=== PATIENT | female | born 2005 | race Caucasian/White ===

== ENCOUNTER 2023-02-07 16:18 | Emergency (ER) | payer OTHER, SELFPAY ==
[2023-02-07 16:25] VITALS: BP 125/80; PULSE 94; RESP 16; TEMP 36.7; O2SAT 100
--- NOTE | 2023-02-07 16:40 | ED.URI ---
HPI - URI/Sore Throat General Chief Complaint: Upper Respiratory Infection Stated Complaint: shortness of breath,chest pain,congestion Time Seen by Provider: 02/07/23 16:40 Source: patient, family, RN notes reviewed and old records reviewed Mode of arrival: ambulatory Limitations: no limitations History of Present Illness HPI Narrative: 17 year old female who presents to [facility] with complaints of cough, head congestion,sore throat,hoarseness, lower chest discomfort associated with coughing for the past 2 days. Patient reports that she has been taking Zyrtec D for her symptoms, reports no fevers. Patient reports that cough is productive of thick hammer mucous and is frequent. Patient denies any shortness of breath respirations even and nonlabored, no tachypnea noted SAO2 100% on room air. Reports that significant other had been ill with similar symptoms. MD elicited complaint: cough, sore throat, rhinorrhea and nasal congestion Onset (ago): day(s) (2) Pain scale (0-10): 5 Treatments prior to arrival: other (Zyrtec D) Related Data Home Medications Medication Instructions Recorded Confirmed sertraline 50 mg tablet 50 mg PO DAILY 02/07/23 02/07/23 Allergies Allergy/AdvReac Type Severity Reaction Status Date / Time No Known Allergies Allergy Unverified 04/05/17 18:10 Review of Systems Review of Systems: CONSTITUTIONAL: Denies malaise, chills, sweats, or fever. EYES: Denies visual changes, redness, or discharge. ENT: Reports rhinorrhea, congestion, sinus pain,no otalgia, positive sore throat. CARDIOVASCULAR: Denies chest pain, palpitations, or edema.lower anterior chest soreness from coughing RESPIRATORY: Reports loose cough.? Denies dyspnea. GASTROINTESTINAL: Denies abdominal pain, nausea, vomiting, diarrhea SKIN: Denies rash or itching. MUSCULOSKELETAL: Denies myalgia. NEUROLOGIC: Denies headache. All systems reviewed & are unremarkable except as noted in HPI and below PMFSH Past Medical History Medical History (Updated 02/08/23 @ 11:08 by Hetal Velásquez NP) Anxiety and depression Seizures Social History Social History (Updated 02/08/23 @ 11:03 by Hetal Velásquez NP) Smoking status: Current every day smoker Tobacco type: e-cigarettes/vaping Alcohol intake: never Substance use type: does not use Living arrangements: with family Gender identity (if verbalized by the patient): Female Comments At time of signature, agree with nursing past medical, surgical, social and family history. There is no relevant family history pertinent to the presenting complaint Exam Narrative: GENERAL: Well-appearing, well-nourished, and in no acute distress. HEAD: Normocephalic EYES: PERRLA, conjunctivae clear ENT: Nares clear, turbinates edematous and erythematous, clear discharge. Mucous membranes moist. TM pearly jean with dull light reflex bilaterally; no tragal tenderness. Oropharynx erythematous without lesions. Tonsils red enlarged and without exudate, no drooling, hoarseness, no trismus, uvula midline.post nasal drainage NECK: Supple. No lymphadenopathy CHEST: Clear to auscultation, breath sounds equal. No wheezing, rhonchi, rales, or stridor. No respiratory distress, speaks in full sentences.productive cough frequent, SAO2 100% on room air, lower anterior chest soreness from coughing HEART: Regular rate and rhythm. No murmur heard. SKIN: Warm, dry, no rash. NEURO: Alert and oriented x3. PSYCH: Normal mood and affect Course Course Emergency Course: Patient is aware of diagnosis, understands and agrees to treatment plan.? Anticipatory guidance given.? Patient agrees to follow-up as directed and is aware of reasons to seek care at the emergency department. Portions of this record may have been created with voice recognition software Level of Care: Express Care Visit Vital Signs Vital signs: Vital Signs Temperature 36.7 C 02/07/23 16:25 Pulse Rate 94
== END 2023-02-07 17:16 | disposition home or self-care (01) ==
PROVIDERS: Emergency Provider Registered Nurse; PCP Pediatrics
DX: J06.9 Acute upper respiratory infection, unspecified (principal); F17.290 Nicotine dependence, other tobacco product, uncomplicated; F41.9 Anxiety disorder, unspecified; F32.A Depression, unspecified
CPT/HCPCS: 87081; 87880; 99203; G0463

== ENCOUNTER 2024-01-28 22:25 | Emergency (ER) | payer OTHER, SELFPAY ==
[2024-01-28 22:36] VITALS: BP 130/75; PULSE 101; RESP 18; TEMP 36.1; O2SAT 100
--- NOTE | 2024-01-28 22:45 | ED.GENADULT ---
HPI - General Adult General Chief complaint: Unspecified Stated complaint: medication reaction Source: patient and family Mode of arrival: ambulatory Limitations: no limitations History of Present Illness HPI narrative: This is a 18-year-old female that presents with some blurry vision mainly the left eye with tingling in her arm and lower extremity, with some history of migraines last migraine approximately 3 months ago. Currently no headache no nausea vomiting no fever chills. Onset (ago): hour(s) Severity: mild Related Data Home Medications Medication Instructions Recorded Confirmed No Home Medications 01/28/24 01/28/24 Allergies Allergy/AdvReac Type Severity Reaction Status Date / Time No Known Allergies Allergy Unverified 04/05/17 18:10 Review of Systems Review of Systems: All systems reviewed & are unremarkable except as noted in HPI and below PMFSH Past Medical History Medical History Anxiety and depression Seizures Social History Social History Smoking status: Current every day smoker Tobacco type: e-cigarettes/vaping Alcohol intake: never Substance use type: does not use Living arrangements: with family Gender identity (if verbalized by the patient): Female Exam Const: General: cooperative, healthy appearing, comfortable and no acute distress HENMT: Head: normal to inspection Ears: hearing grossly normal bilaterally Mouth: Yes Normal oral and palatal mucosa present Eyes: General: appearance normal, both eyes and all related structures Visual Richardson: normal visual richardson by confrontation Alignment and Position: alignment normal Periorbital: periorbital findings normal Pupils: Equal, round and reactive pupils present Direct Ophthalmoscopy: normal light reflex and no photophobia Neck: Neck: normal visual inspection, full ROM, no lymphadenopathy and no meningeal signs Chest: Chest palpation & inspection: normal inspection of the chest Resp: Effort & Inspection: normal respiratory effort and able to speak in complete sentences Auscultation: clear to auscultation bilaterally Cardio: Palpation: normal PMI Rate: regular rate Rhythm: regular rhythm GI: Inspection: normal to inspection Neuro: General: oriented to person, oriented to place, oriented to time, patient oriented x3, gait normal, tone normal, moves all extremities, Normal light touch and pain sensation, no meningeal signs and no focal motor deficits Course Course Emergency Course: Patient with a history of migraines, appears to have a migraine variant advised patient to take Tylenol or Motrin as needed the patient declined any medication here and follow up with primary if symptoms persist or worsen. Vital Signs Vital signs: Vital Signs Temperature 36.1 C L 01/28/24 22:36 Pulse Rate 101 H 01/28/24 22:36 Respiratory Rate 18 01/28/24 22:36 Blood Pressure 130/75 01/28/24 22:36 Pulse Oximetry 100 01/28/24 22:36 Oxygen Delivery Room Air 01/28/24 22:36 Temperature 36.1 C L 01/28/24 22:36 Pulse Rate 101 H 01/28/24 22:36 Respiratory Rate 18 01/28/24 22:36 Blood Pressure 130/75 01/28/24 22:36 Pulse Oximetry 100 01/28/24 22:36 Oxygen Delivery Room Air 01/28/24 22:36 Medical Decision Making Vital Signs Vital Signs: Vital Signs Temperature 36.1 C L 01/28/24 22:36 Pulse Rate 101 H 01/28/24 22:36 Respiratory Rate 18 01/28/24 22:36 Blood Pressure 130/75 01/28/24 22:36 Pulse Oximetry 100 01/28/24 22:36 Oxygen Delivery Room Air 01/28/24 22:36 Temperature 36.1 C L 01/28/24 22:36 Pulse Rate 101 H 01/28/24 22:36 Respiratory Rate 18 01/28/24 22:36 Blood Pressure 130/75 01/28/24 22:36 Pulse Oximetry 100 01/28/24 22:36 Oxygen Delivery Room Air 01/28/24 22:36 Critical Care Time Critical Care Time Critical Care Time: No
== END 2024-01-28 22:54 | disposition home or self-care (01) ==
PROVIDERS: Emergency Provider Emergency Medicine; PCP Nurse Practitioner Family
DX: G43.109 Migraine with aura, not intractable, without status migrainosus (principal); F41.8 Other specified anxiety disorders; F17.290 Nicotine dependence, other tobacco product, uncomplicated
CPT/HCPCS: 99281